=== PATIENT | female | born 1935 | race Caucasian/White ===

== ENCOUNTER 2022-02-13 20:41 | Observation (INO) ==
[2022-02-13 21:16] LABS: Basophils % 0.4 %; Eosinophils # 0.3 K/mcL (0.0-0.6); Eosinophils % 3.6 %; Hematocrit 40.5 % (35.3-44.9); Hemoglobin 13.1 g/dL (11.5-15.4); Immature Granulocytes % 0.3 % (0-4); Lymphocytes # 1.4 K/mcL (0.6-4.6); Lymphocytes % 17.6 %; Mean Corpuscular HGB Conc 32.3 g/dL (31.6-35.5); Mean Corpuscular Volume 89.6 fL (83.0-100.0); Mean Platelet Volume 9.8 fL (9.4-12.4); Monocytes # 0.9 K/mcL (0.0-1.3); Monocytes % 10.8 %; Neutrophils # 5.3 K/mcL (1.6-8.9); Platelet Count 235 K/mcL (140-400); Red Blood Count 4.52 M/mcL (3.82-4.97); Red Cell Distribution Width 13.3 % (11.5-14.5); Segmented Neutrophils % 67.3 %; White Blood Count 7.9 K/mcL (4.3-11.1)
[2022-02-13 21:26] LABS: INR 1.1; Prothrombin Time 11.7 Seconds (9.4-12.1)
[2022-02-13 21:28] LABS: Activated Partial Thrombo Time 29.4 Seconds (26.0-36.0)
[2022-02-13 21:37] LABS: Albumin 3.9 g/dL (3.5-5.7); Albumin/Globulin Ratio 1.2 (1.1-2.2); Bilirubin,Total 0.5 mg/dL (0.3-1.0); Calcium 9.4 mg/dL (8.6-10.3); Globulin 3.3 g/dL (2.4-3.5); Potassium 4.5 mEq/L (3.5-5.1); Total Protein 7.2 g/dL (6.4-8.9)
[2022-02-13 21:45] LABS: Bilirubin,Urine Negative (Negative); Blood,Urine Trace-intact (Negative); Clarity,Urine Clear (Clear); Color,Urine Yellow (Yellow); Glucose,Urine (UA) Normal (Normal); Ketones,Urine Negative (Negative); Leukocyte Esterase,Urine Moderate (Negative); Nitrite,Urine Positive (Negative); PH,Urine 5.5 pH Units (5.0-8.0); Protein,Urine Negative (Neg-Trace); Urobilinogen,Urine Normal (Normal)
[2022-02-13 21:55] LABS: Amorphous Sediment,Urine Few per hpf (None-Few)
[2022-02-13] MEDS ORDERED: 0.9 % Sodium Chloride 1,000 ML IV ONE (22:38)
[2022-02-13] MEDS ORDERED: 0.9 % Sodium Chloride 1,000 ML ONE (22:46)
[2022-02-14] MEDS ORDERED: 0.9 % Sodium Chloride 1,000 ML ONE (00:03)
[2022-02-14] MEDS: 0.9 % Sodium Chloride 1,000 ML IVC SCH ×2 (00:05→08:55)
[2022-02-14] MEDS ORDERED: Pantoprazole 40 MG VIAL IVP ONE (01:14)
[2022-02-14] MEDS ORDERED: Ondansetron 4 MG/2 ML VIAL IVP ONE (01:14)
[2022-02-14] MEDS ORDERED: cefTRIAXone 1,000 MG in 0.9 % Sodium Chloride Mini Bag 100 ML IVPB ONE (08:08)
[2022-02-15] MEDS ORDERED: Acetaminophen 325 MG TABLET PO ONE (06:49)
[2022-02-15] MEDS ORDERED: lisinopriL 20 MG TABLET PO ONE (07:53)
[2022-02-15] MEDS ORDERED: amLODIPine 5 MG TABLET PO ONE (07:54)
[2022-02-15] MEDS ORDERED: Sulfamethoxazole/Trimeth DS 1 EACH TABLET PO ONE (07:56)
[2022-02-15] MEDS: 0.9 % Sodium Chloride 1,000 ML IVC SCH ×4 (08:04→19:55)
[2022-02-15] MEDS ORDERED: Sulfamethoxazole/Trimeth DS 1 EACH TABLET PO SCH (08:15)
[2022-02-15 08:17] LABS: Basophils % 0.6 %; Eosinophils # 0.3 K/mcL (0.0-0.6); Eosinophils % 4.7 %; Hematocrit 37.5 % (35.3-44.9); Immature Granulocytes % 0.6 % (0-4); Lymphocytes # 1.2 K/mcL (0.6-4.6); Lymphocytes % 18.5 %; Mean Corpuscular Hemoglobin 28.9 pg (28.0-33.3); Mean Corpuscular Volume 90.4 fL (83.0-100.0); Mean Platelet Volume 9.6 fL (9.4-12.4); Monocytes # 1.1 K/mcL (0.0-1.3); Monocytes % 16.4 %; Neutrophils # 3.9 K/mcL (1.6-8.9); Platelet Count 205 K/mcL (140-400); Red Blood Count 4.15 M/mcL (3.82-4.97); Red Cell Distribution Width 13.6 % (11.5-14.5); Segmented Neutrophils % 59.2 %; White Blood Count 6.7 K/mcL (4.3-11.1)
[2022-02-15 08:24] LABS: Albumin 3.4 g/dL (3.5-5.7); Albumin/Globulin Ratio 1.1 (1.1-2.2); Bilirubin,Total 0.4 mg/dL (0.3-1.0); Calcium 8.9 mg/dL (8.6-10.3); Potassium 3.8 mEq/L (3.5-5.1); Total Protein 6.4 g/dL (6.4-8.9)
[2022-02-15 08:36] LABS: Platelet Estimate Normal (Normal)
[2022-02-15] MEDS ORDERED: Pantoprazole 40 MG VIAL IVP ONE (08:52)
[2022-02-15] MEDS ORDERED: Acetaminophen 325 MG TABLET PO PRN (09:16)
[2022-02-15] MEDS ORDERED: Naloxone 0.4 MG/ML INJ IVP PRN (09:16)
[2022-02-15] MEDS ORDERED: Ondansetron 4 MG/2 ML VIAL IVP PRN (09:16)
[2022-02-15] MEDS: MetroNIDAZOLE 500 MG/100 ML 500 MG/100 ML BAG IVPB SCH ×3 (12:03→21:16)
[2022-02-15] MEDS: Melatonin 3 MG TABLET PO PRN (21:15)
[2022-02-15] MEDS: Pantoprazole 40 MG VIAL IVP SCH (21:15)
[2022-02-16 05:11] LABS: Adenovirus F 40/41 PCR Not detected (Not detect); Astrovirus PCR Not detected (Not detect); C.difficile Toxin A/B Gene PCR Not detected (Not detect); Campylobacter by PCR DETECTED (Not detect); Cryptosporidium by PCR Not detected (Not detect); Cyclospora cayetanensis PCR Not detected (Not detect); Entamoeba histolytica PCR Not detected (Not detect); Enteroaggregative E.coli(EAEC) Not detected (Not detect); Enteropathogenic E.coli(EPEC) Not detected (Not detect); Enterotoxigenic E.coli (ETEC) Not detected (Not detect); Giardia lamblia PCR Not detected (Not detect); Norovirus GI/GII PCR Not detected (Not detect); Plesiomonas shigelloides PCR Not detected (Not detect); Rotavirus A PCR Not detected (Not detect); Salmonella PCR Not detected (Not detect); Sapovirus PCR Not detected (Not detect); Shig/EnteroinvasiveE coli EIEC Not detected (Not detect); Shigalike tox-prod E coli STEC Not detected (Not detect); Vibrio PCR Not detected (Not detect); Vibrio cholerae PCR Not detected (Not detect); Yersinia enterocolitica PCR Not detected (Not detect)
[2022-02-16] MEDS: MetroNIDAZOLE 500 MG/100 ML 500 MG/100 ML BAG IVPB SCH ×2 (05:36→12:44)
[2022-02-16 07:53] LABS: Hematocrit 37.4 % (35.3-44.9); Hemoglobin 12.1 g/dL (11.5-15.4); Mean Corpuscular HGB Conc 32.4 g/dL (31.6-35.5); Mean Corpuscular Hemoglobin 29.1 pg (28.0-33.3); Mean Corpuscular Volume 89.9 fL (83.0-100.0); Mean Platelet Volume 9.6 fL (9.4-12.4); Platelet Count 208 K/mcL (140-400); Red Blood Count 4.16 M/mcL (3.82-4.97); Red Cell Distribution Width 13.9 % (11.5-14.5); White Blood Count 5.9 K/mcL (4.3-11.1)
[2022-02-16] MEDS: Pantoprazole 40 MG VIAL IVP SCH (08:51)
[2022-02-16] MEDS ORDERED: Multivit/Ca/Min/Fe/FA 1 TAB TABLET PO SCH (09:00)
[2022-02-16] MEDS ORDERED: (Omega-3/Dha/Epa/Fish Oil [Fish Oil 1,000 Mg Softgel] PO SCH (09:00)
[2022-02-16] MEDS ORDERED: Cholecalciferol (D-3) 1,000 UNIT (25MCG) TABLET PO SCH (09:00)
[2022-02-16] MEDS ORDERED: amLODIPine 5 MG TABLET PO SCH (09:00)
[2022-02-16 09:26] LABS: Calcium 8.8 mg/dL (8.6-10.3); Potassium 3.6 mEq/L (3.5-5.1)
[2022-02-16] MEDS: Melatonin 3 MG TABLET PO PRN (23:04)
[2022-02-17] MEDS: Pantoprazole 40 MG VIAL IVP SCH (00:27)
[2022-02-17] MEDS: MetroNIDAZOLE 500 MG/100 ML 500 MG/100 ML BAG IVPB SCH (00:27)
[2022-02-17] MEDS ORDERED: Pantoprazole 40 MG VIAL IVP SCH (02:00)
[2022-02-17] MEDS ORDERED: MetroNIDAZOLE 500 MG/100 ML 500 MG/100 ML BAG IVPB SCH (02:00)
[2022-02-17 06:19] LABS: Hematocrit 37.1 % (35.3-44.9); Hemoglobin 11.9 g/dL (11.5-15.4); Mean Corpuscular HGB Conc 32.1 g/dL (31.6-35.5); Mean Corpuscular Hemoglobin 28.9 pg (28.0-33.3); Platelet Count 233 K/mcL (140-400); Red Blood Count 4.12 M/mcL (3.82-4.97); Red Cell Distribution Width 13.8 % (11.5-14.5); White Blood Count 6.9 K/mcL (4.3-11.1)
[2022-02-17 06:41] LABS: Calcium 8.9 mg/dL (8.6-10.3); Potassium 4.2 mEq/L (3.5-5.1)
[2022-02-17 07:10] VITALS: BP 124/75; PULSE 51; RESP 18; TEMP 97.7; O2SAT 96
== END 2022-02-17 11:20 | disposition home or self-care (01) ==
LOC: EMEROOPIK 20:41 → INPPIK 20:41
PROVIDERS: ADMIT Registered Nurse Emergency; ATTEND Registered Nurse Emergency